=== PATIENT | female | born 1990 | race Caucasian/White ===

== ENCOUNTER 2016-09-14 12:27 | Inpatient (IN) | payer OTHER ==
[~2016-09-14] VITALS: Ht 172.7 cm; Wt 68.6 kg
[~2016-09-14 12:27] MED LIST: ARIP1TAB11 PO; SERT50 PO
[2016-09-14 12:30] VITALS: BP 123/80; PULSE 76; RESP 24; TEMP 97.9; O2SAT 95
[2016-09-14 13:50] LABS: AUTOMATED NEUTROPHIL # 4.5 TH/MM3 (1.8-7.7); BASOPHIL % 0.1 % (0.0-2.0); EOSINOPHIL # 0.1 TH/MM3 (0-0.4); HEMO FLAGS DIFF FINAL; LYMPHOCYTE # 1.8 TH/MM3 (1.0-4.8); MEAN CELL VOLUME 91.7 FL (80.0-100.0); MEAN CORPUSCULAR HEMOGLOBIN 30.2 PG (27.0-34.0); MONO % 12.2 % (0.0-8.0); NEUT % 60.7 % (16.0-70.0); PLATELET COUNT 185 TH/MM3 (150-450); RED BLOOD COUNT 4.69 MIL/MM3 (4.00-5.30); WHITE BLOOD COUNT 7.4 TH/MM3 (4.0-11.0)
[2016-09-14 14:14] LABS: BICARBONATE 27.5 MEQ/L (21.0-32.0); POTASSIUM 3.9 MEQ/L (3.5-5.1)
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
[2016-09-14 17:14] VITALS: BP 134/66; PULSE 80; RESP 18; O2SAT 98
[2016-09-14 17:52] LABS: BACTERIA, URINE MANY /hpf; BLOOD, URINE TRACE (NEG); COMMENT (UR) CULTURE INDICATED; CULTURE IF INDICATED CULTURE INDICATED; GLUCOSE,URINE NEG (NEG); KETONE, URINE 40 mg/dL (NEG); MUCUS URINE FEW /lpf (OCC); NITRITE,URINE NEG (NEG); PH, URINE 6.5 (5.0-8.5); SQUAMOUS EPITHELIAL CELL URINE 286 /hpf (0-5); URINE COLOR YELLOW (YELLW/STRAW)
[2016-09-14 18:23] LABS: AMPHETAMINE, URINE NEG (NEG); BARBITURATES, URINE NEG (NEG); COCAINE, URINE NEG (NEG)
[2016-09-14] MEDS ORDERED: CEPH-460 PO (19:56)
[2016-09-14] MEDS ORDERED: CEPHALEXIN MONOHYDRATE 500 MG CAP PO ONE (20:00)
[2016-09-14 22:05] VITALS: BP 143/91; PULSE 81; RESP 17; O2SAT 98
[2016-09-15 02:29] VITALS: BP 137/96; PULSE 100; RESP 17; O2SAT 99
[2016-09-15 06:07] VITALS: BP 140/75; PULSE 100; RESP 18; O2SAT 98
[2016-09-15] MEDS ORDERED: CEPHALEXIN MONOHYDRATE 500 MG CAP PO ONE (08:45)
[2016-09-15] MEDS ORDERED: ONDANSETRON ODT 4 MG TAB PO ONE (08:45)
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
[2016-09-15] MEDS ORDERED: diphenhydrAMINE HCL 50 MG/ML VIAL IM ONE (09:15)
[2016-09-15] MEDS ORDERED: OLANZapine IM 10 MG VIAL IM ONE ×3 (09:15→10:30)
[2016-09-15] MEDS ORDERED: ALUMINUM/MAGNESIUM/SIMETH 30 ML CUP PO PRN (13:15)
[2016-09-15 13:53] VITALS: BP 130/74; PULSE 105; RESP 19; TEMP 98.2; O2SAT 98
[2016-09-15 14:10] VITALS: BP 130/74; PULSE 105; RESP 19; O2SAT 98
[2016-09-15 15:06] VITALS: BP 136/78; PULSE 100; RESP 18; TEMP 98.3; O2SAT 99
[2016-09-15 18:00] VITALS: BP 136/78; PULSE 100; RESP 18; TEMP 98.3; O2SAT 99
[2016-09-15] MEDS: MAGNESIUM HYDROXIDE SUSP 30 ML CUP PO PRN (21:55)
[2016-09-16] MEDS: ACETAMINOPHEN 325 MG TAB PO PRN ×2 (00:30→13:05)
[2016-09-16 05:33] VITALS: BP 120/64; PULSE 75; RESP 16; TEMP 97.9; O2SAT 97
[2016-09-16 10:09] LABS: ANION GAP 10 MEQ/L (5-15); BICARBONATE 24.4 MEQ/L (21.0-32.0); BLOOD UREA NITROGEN 12 MG/DL (7-18); CHLORIDE 103 MEQ/L (98-107); POTASSIUM 3.8 MEQ/L (3.5-5.1); SODIUM (NA) 137 MEQ/L (136-145)
[2016-09-16 10:10] LABS: GLOMERULAR FILTRATION RATE 82 ML/MIN (>89)
[2016-09-16 10:18] LABS: HDL CHOLESTEROL 46.7 MG/DL (40.0-60.0); LDL CHOLESTEROL 67 MG/DL (0-99)
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
[2016-09-16] MEDS: MAGNESIUM HYDROXIDE SUSP 30 ML CUP PO PRN (13:03)
[2016-09-16] MEDS ORDERED: CEPH-460 PO (13:40)
[2016-09-16] MEDS ORDERED: ZYPR10TA PO (13:40)
[2016-09-16] MEDS ORDERED: CIPR250T52 PO (13:43)
[2016-09-16 16:30] LABS: HEMOGLOBIN A1a 0.9 %; HEMOGLOBIN A1b 1.4 %; HEMOGLOBIN Ao 87.3 %; HEMOGLOBIN LA1C 1.9 %; HEMOGLOBIN P3 3.3 %
== END 2016-09-16 15:45 | disposition home or self-care (01) | DRG 882 ==
LOC: NEPD 12:27 → NEDA 09-15 13:13 → H260 09-15 14:05
PROVIDERS: ADMIT Psychiatry & Neurology Psychiatry; ATTEND Psychiatry & Neurology Psychiatry
DX: F43.20 Adjustment disorder, unspecified (principal); N39.0 Urinary tract infection, site not specified; F60.3 Borderline personality disorder; F12.10 Cannabis abuse, uncomplicated; Z88.8 Allergy status to other drugs, medicaments and biological substances; Z91.040 Latex allergy status
CPT/HCPCS: 80048; 80061; 80307; 81001; 83036; 84703; 85025; 87086; 96372; J1200

== ENCOUNTER 2016-10-26 09:33 | Emergency (ER) | payer OTHER ==
[~2016-10-26] VITALS: Ht 170.2 cm; Wt 65.0 kg
[~2016-10-26 09:33] MED LIST changes: -ARIP1TAB11 PO; +CIPR250T52 PO; -SERT50 PO; +ZYPR10TA PO
[2016-10-26 09:44] VITALS: BP 134/80; PULSE 98; RESP 20; TEMP 97.9; O2SAT 98
[2016-10-26] MEDS ORDERED: WELLTAB39 PO (10:43)
[2016-10-26] MEDS ORDERED: VIST25CA PO (10:43)
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
[2016-10-26] MEDS ORDERED: BUPR150CR PO (12:07)
--- NOTE | 2016-10-26 12:12 | RADRPT ---
EXAM DATE/TIME: 10/26/2016 12:04 [facility] COMPARISON: No previous studies available for comparison. INDICATIONS : Lower back pain. MEDICAL HISTORY : None. SURGICAL HISTORY : None. ENCOUNTER: Initial ACUITY: 1 month PAIN SCORE: 8/10 LOCATION: Lumbar. FINDINGS: Two view examination was performed. There are five non-rib bearing vertebral bodies. The vertebral bodies are in normal alignment without evidence of subluxation or scoliosis. There is disc space narr owing at L5-S1, mild. A few scattered Schmorl nodes are present.. The pedicles are intact. Bony min eralization is normal. No fracture is identified. CONCLUSION: Scattered Schmorl nodes and mild disc space narrowing. Eleazar Najera MD on October 26, 2016 at 12:10 Board Certified Radiologist. This report was verified electronically.
[2016-10-26 12:36] LABS: AUTOMATED NEUTROPHIL # 3.7 TH/MM3 (1.8-7.7); BASOPHIL % 0.2 % (0.0-2.0); EOSINOPHIL # 0.2 TH/MM3 (0-0.4); EOSINOPHIL % 2.4 % (0.0-4.0); HEMATOCRIT 37.3 % (35.0-46.0); HEMO FLAGS DIFF FINAL; LYMPH % 30.7 % (9.0-44.0); LYMPHOCYTE # 2.1 TH/MM3 (1.0-4.8); MEAN CELL VOLUME 90.7 FL (80.0-100.0); MEAN CORPUSCULAR HEMOGLOBIN 30.2 PG (27.0-34.0); MEAN CORPUSCULAR HGB CONC 33.3 % (32.0-36.0); MONO % 13.5 % (0.0-8.0); NEUT % 53.2 % (16.0-70.0); PLATELET COUNT 252 TH/MM3 (150-450); RED BLOOD COUNT 4.11 MIL/MM3 (4.00-5.30); RED CELL DISTRIBUTION WIDTH 13.1 % (11.6-17.2)
[2016-10-26 12:55] LABS: ANION GAP 8 MEQ/L (5-15); AST (GOT) 29 U/L (15-37); BICARBONATE 23.7 MEQ/L (21.0-32.0); BLOOD UREA NITROGEN 11 MG/DL (7-18); CHLORIDE 112 MEQ/L (98-107); GLOMERULAR FILTRATION RATE 82 ML/MIN (>89); POTASSIUM 3.8 MEQ/L (3.5-5.1); SODIUM (NA) 144 MEQ/L (136-145)
[2016-10-26 12:56] LABS: ALCOHOL LESS THAN 3 MG/DL (0-5)
[2016-10-26 12:58] LABS: ALKALINE PHOSPHATASE 50 U/L (45-117); ALT (GPT) 33 U/L (10-53); TOTAL BILIRUBIN ADULT 0.2 MG/DL (0.2-1.0)
[2016-10-26 13:05] LABS: ACETAMINOPHEN LESS THAN 2.0 MCG/ML (10.0-30.0)
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
[2016-10-26 14:28] LABS: BACTERIA, URINE FEW /hpf; BLOOD, URINE MOD (NEG); COMMENT (UR) CULT NOT INDICATED; CULTURE IF INDICATED CULT NOT INDICATED; GLUCOSE,URINE NEG (NEG); KETONE, URINE NEG (NEG); MUCUS URINE FEW /lpf (OCC); NITRITE,URINE NEG (NEG); SQUAMOUS EPITHELIAL CELL URINE 4 /hpf (0-5); URINE COLOR YELLOW (YELLW/STRAW)
== END 2016-10-26 14:27 | disposition home or self-care (01) ==
LOC: NEPK 09:33 → NEPD 14:27
DX: M54.5 Low back pain (principal)
CPT/HCPCS: 72100; 80053; 80307; 81001; 84703; 85025; 99284

== ENCOUNTER 2016-10-27 18:58 | Emergency (ER) | payer OTHER ==
[~2016-10-27 18:58] MED LIST changes: +BUPR150CR PO; -CIPR250T52 PO; +VIST25CA PO; -ZYPR10TA PO
[2016-10-27 19:49] VITALS: BP 134/96; PULSE 89; RESP 17; O2SAT 95
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
[2016-10-27 21:25] LABS: AUTOMATED NEUTROPHIL # 6.5 TH/MM3 (1.8-7.7); BASOPHIL % 0.1 % (0.0-2.0); EOSINOPHIL # 0.2 TH/MM3 (0-0.4); EOSINOPHIL % 2.3 % (0.0-4.0); HEMATOCRIT 37.9 % (35.0-46.0); HEMO FLAGS DIFF FINAL; LYMPH % 26.3 % (9.0-44.0); LYMPHOCYTE # 2.7 TH/MM3 (1.0-4.8); MEAN CORPUSCULAR HEMOGLOBIN 29.8 PG (27.0-34.0); MEAN CORPUSCULAR HGB CONC 32.8 % (32.0-36.0); MONO % 8.7 % (0.0-8.0); NEUT % 62.6 % (16.0-70.0); PLATELET COUNT 239 TH/MM3 (150-450); RED BLOOD COUNT 4.17 MIL/MM3 (4.00-5.30); RED CELL DISTRIBUTION WIDTH 12.8 % (11.6-17.2); WHITE BLOOD COUNT 10.4 TH/MM3 (4.0-11.0)
[2016-10-27 21:46] LABS: ANION GAP 7 MEQ/L (5-15); AST (GOT) 19 U/L (15-37); BICARBONATE 25.3 MEQ/L (21.0-32.0); BLOOD UREA NITROGEN 11 MG/DL (7-18); CHLORIDE 108 MEQ/L (98-107); GLOMERULAR FILTRATION RATE 65 ML/MIN (>89); POTASSIUM 3.2 MEQ/L (3.5-5.1); SODIUM (NA) 140 MEQ/L (136-145)
[2016-10-27 21:47] LABS: ALT (GPT) 29 U/L (10-53)
[2016-10-27 21:49] LABS: ACETAMINOPHEN LESS THAN 2.0 MCG/ML (10.0-30.0); ALKALINE PHOSPHATASE 45 U/L (45-117); TOTAL BILIRUBIN ADULT 0.3 MG/DL (0.2-1.0)
[2016-10-27 21:59] LABS: ALCOHOL LESS THAN 3 MG/DL (0-5)
[2016-10-27 22:19] VITALS: BP 157/67; PULSE 109; RESP 17; O2SAT 99
[2016-10-27] MEDS ORDERED: POTASSIUM CHLORIDE 20 MEQ CONTROLLED RELEASE TAB PO ONE (22:30)
[2016-10-28 02:00] VITALS: BP 136/77; PULSE 105; RESP 16; O2SAT 100
[2016-10-28 06:39] VITALS: BP 127/72; PULSE 85; RESP 18; O2SAT 99
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
[2016-10-28 12:18] VITALS: BP 147/60; PULSE 83; RESP 18; TEMP 98.6; O2SAT 100
--- NOTE | 2016-10-28 12:57 | PD ---
Physical Exam Date Seen by Provider: Oct 28, 2016 Time Seen by Provider: 12:54 Narrative Patient was seen by psychiatric nurse practitioner eLyla Melendez act was lifted. Please refer to previous provider's dictation for full H&P details. Patient has outpatient psychiatry appointment on November 12. According to the nurse practitioner patient has no suicide or homicidal ideation. Discharge was recommended. Data Data Last Documented VS Vital Signs Date Time Temp Pulse Resp B/P (MAP) Pulse Ox O2 Delivery O2 Flow Rate FiO2 10/28/16 12:18 98.6 83 18 147/60 (89) 100 10/28/16 06:39 Room Air Orders Orders Complete Blood Count With Diff (10/27/16 19:35) Comprehensive Metabolic Panel (10/27/16 19:35) Ed Urine Pregnancytest Poc (10/27/16 19:35) Psych Screen (10/27/16 19:35) Drug Screen, Random Urine (10/27/16 19:35) Alcohol (Ethanol) (10/27/16 19:35) Salicylates (Aspirin) (10/27/16 19:35) Tylenol (Acetaminophen) (10/27/16 19:35) Potassium Chloride (Kcl) (10/27/16 22:30) Hydroxyzine Pamoate (Vistaril) (10/27/16 22:30) Diet Regular Basic (10/28/16 Breakfast) Diet Regular Basic (10/28/16 Lunch) Bupropion Sr (Wellbutrin Sr) (10/28/16 12:15) Labs Laboratory Tests Test 10/27/16 20:20 10/27/16 21:00 Urine Opiates Screen NEG Urine Barbiturates Screen NEG Urine Amphetamines Screen NEG Urine Benzodiazepines Screen NEG Urine Cocaine Screen NEG Urine Cannabinoids Screen POS White Blood Count 10.4 TH/MM3 Red Blood Count 4.17 MIL/MM3 Hemoglobin 12.4 GM/DL Hematocrit 37.9 % Mean Corpuscular Volume 91.0 FL Mean Corpuscular Hemoglobin 29.8 PG Mean Corpuscular Hemoglobin Concent 32.8 % Red Cell Distribution Width 12.8 % Platelet Count 239 TH/MM3 Mean Platelet Volume 8.5 FL Neutrophils (%) (Auto) 62.6 % Lymphocytes (%) (Auto) 26.3 % Monocytes (%) (Auto) 8.7 % Eosinophils (%) (Auto) 2.3 % Basophils (%) (Auto) 0.1 % Neutrophils # (Auto) 6.5 TH/MM3 Lymphocytes # (Auto) 2.7 TH/MM3 Monocytes # (Auto) 0.9 TH/MM3 Eosinophils # (Auto) 0.2 TH/MM3 Basophils # (Auto) 0.0 TH/MM3 CBC Comment DIFF FINAL Differential Comment Blood Urea Nitrogen 11 MG/DL Creatinine 1.03 MG/DL Random Glucose 84 MG/DL Total Protein 6.9 GM/DL Albumin 3.3 GM/DL Calcium Level 8.2 MG/DL Alkaline Phosphatase 45 U/L Aspartate Amino Transf (AST/SGOT) 19 U/L Alanine Aminotransferase (ALT/SGPT) 29 U/L Total Bilirubin 0.3 MG/DL Sodium Level 140 MEQ/L Potassium Level 3.2 MEQ/L Chloride Level 108 MEQ/L Carbon Dioxide Level 25.3 MEQ/L Anion Gap 7 MEQ/L Estimat Glomerular Filtration Rate 65 ML/MIN Salicylates Level LESS THAN 1.7 MG/DL Acetaminophen Level LESS THAN 2.0 MCG/ML Ethyl Alcohol Level LESS THAN 3 MG/DL [facility] Medical Record Reviewed: Yes Supervised Visit with GARRY: No Differential Diagnosis Bipolar disorder Narrative Course I have seen the patient prior to discharge. She does not voice any concerns of suicide or homicide. Patient tells me she is ready to go home. She does have an outpatient follow-up with her psychiatrist on November 12. Diagnosis Primary Impression: Medical clearance for psychiatric admission Additional Impression: Bipolar 1 disorder, mixed Patient Instructions: General Instructions Additional Instruction: Follow-up with your psychiatrist. Return to the emergency department for any worsening of your condition Disposition: 01 DISCHARGE HOME Condition: Stable Yaima Goddard Oct 28, 2016 12:56
[2016-10-28] MEDS ORDERED: buPROPion HCL 150 MG SUSTAINED RELEASE TAB PO SCH (13:30)
== END 2016-10-28 13:31 | disposition home or self-care (01) ==
LOC: NEPJ 18:58
DX: Z02.89 Encounter for other administrative examinations (principal); F31.9 Bipolar disorder, unspecified; J45.909 Unspecified asthma, uncomplicated
CPT/HCPCS: 80053; 80307; 84703; 85025; 99284

== ENCOUNTER 2016-11-15 23:24 | Emergency (ER) | payer OTHER ==
[~2016-11-15] VITALS: Ht 165.1 cm; Wt 57.0 kg
[2016-11-15 23:29] VITALS: BP 119/76; PULSE 120; RESP 16; TEMP 97.5; O2SAT 100
[2016-11-16] MEDS ORDERED: BUSP10TA PO ×2 (00:26→01:07)
[2016-11-16] MEDS ORDERED: DIAZ2 PO (00:27)
[2016-11-16] MEDS ORDERED: HYDR50TA94 PO (01:07)
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
== END 2016-11-16 01:29 | disposition home or self-care (01) ==
LOC: NEPD 23:24
DX: Z76.0 Encounter for issue of repeat prescription (principal); F31.9 Bipolar disorder, unspecified; F41.9 Anxiety disorder, unspecified; J45.909 Unspecified asthma, uncomplicated
CPT/HCPCS: 99281

== ENCOUNTER 2016-11-19 09:48 | Emergency (ER) | payer OTHER ==
[~2016-11-19] VITALS: Ht 167.6 cm; Wt 60.0 kg
[~2016-11-19 09:48] MED LIST changes: -BUPR150CR PO; +BUSP10TA PO; +DIAZ2 PO; +HYDR50TA94 PO
[2016-11-19 10:09] VITALS: BP 119/69; PULSE 113; RESP 18; O2SAT 100
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
[2016-11-19] MEDS ORDERED: KETOROLAC TROMETHAMINE 30 MG/ML (IVP) VIAL IVP ONE (10:30)
[2016-11-19 10:32] LABS: AUTOMATED NEUTROPHIL # 16.5 TH/MM3 (1.8-7.7); BASOPHIL % 0.1 % (0.0-2.0); EOSINOPHIL % 0.2 % (0.0-4.0); HEMATOCRIT 40.3 % (35.0-46.0); LYMPH % 7.5 % (9.0-44.0); LYMPHOCYTE # 1.5 TH/MM3 (1.0-4.8); MEAN CELL VOLUME 91.6 FL (80.0-100.0); MEAN CORPUSCULAR HEMOGLOBIN 30.3 PG (27.0-34.0); MEAN CORPUSCULAR HGB CONC 33.1 % (32.0-36.0); MONO % 11.1 % (0.0-8.0); NEUT % 81.1 % (16.0-70.0); PLATELET COUNT 214 TH/MM3 (150-450); RED CELL DISTRIBUTION WIDTH 13.5 % (11.6-17.2); WHITE BLOOD COUNT 20.4 TH/MM3 (4.0-11.0)
[2016-11-19 10:35] LABS: HEMO FLAGS AUTO DIFF
[2016-11-19 10:46] LABS: ANION GAP 5 MEQ/L (5-15); BICARBONATE 27.7 MEQ/L (21.0-32.0); BLOOD UREA NITROGEN 11 MG/DL (7-18); CHLORIDE 104 MEQ/L (98-107); GLOMERULAR FILTRATION RATE 57 ML/MIN (>89); POTASSIUM 3.4 MEQ/L (3.5-5.1); SODIUM (NA) 137 MEQ/L (136-145)
[2016-11-19 11:00] LABS: ALCOHOL LESS THAN 3 MG/DL (0-5)
[2016-11-19 11:01] LABS: BACTERIA, URINE MOD /hpf; COMMENT (UR) CULTURE INDICATED; CULTURE IF INDICATED CULTURE INDICATED; MUCUS URINE MOD /lpf (OCC); SQUAMOUS EPITHELIAL CELL URINE 31 /hpf (0-5)
[2016-11-19 11:03] LABS: URINE COLOR DARK-BROWN (YELLW/STRAW)
[2016-11-19 11:05] LABS: BLOOD, URINE LARGE (NEG); GLUCOSE,URINE 70 mg/dL (NEG); KETONE, URINE NEG (NEG); NITRITE,URINE POS (NEG)
[2016-11-19 11:12] LABS: SCAN/DIFF AUTO DIFF CONFIRMED
[2016-11-19] MEDS ORDERED: CIPR-9 PO (13:21)
[2016-11-19] MEDS ORDERED: CIPROFLOXACIN 500 MG TAB PO ONE (13:30)
[2016-11-19 15:00] VITALS: BP 127/68; PULSE 110; RESP 20; TEMP 98.1; O2SAT 100
[2016-11-19 18:00] VITALS: BP 109/58; PULSE 110; RESP 18; O2SAT 97
[2016-11-19 19:16] VITALS: TEMP 98.6
[2016-11-20 02:22] VITALS: BP 121/59; PULSE 108; RESP 18
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
== END 2016-11-20 12:52 | disposition home or self-care (01) ==
LOC: NEPD 09:48 → NEPJ 11-20 12:52
DX: F31.9 Bipolar disorder, unspecified (principal); N39.0 Urinary tract infection, site not specified; B96.20 Unspecified Escherichia coli [E. coli] as the cause of diseases classified elsewhere; D72.829 Elevated white blood cell count, unspecified; F90.9 Attention-deficit hyperactivity disorder, unspecified type; F43.10 Post-traumatic stress disorder, unspecified; J45.909 Unspecified asthma, uncomplicated; F17.200 Nicotine dependence, unspecified, uncomplicated; Z79.899 Other long term (current) drug therapy
CPT/HCPCS: 80048; 80307; 81001; 84703; 85025; 87077; 87086; 87186; 96374; 99284; J1885

== ENCOUNTER 2016-11-23 21:24 | Emergency (ER) | payer SELFPAY ==
[~2016-11-23] VITALS: Ht 167.6 cm; Wt 60.0 kg
[~2016-11-23 21:24] MED LIST changes: +CIPR-9 PO; -VIST25CA PO
[2016-11-23 21:29] VITALS: BP 118/75; PULSE 85; RESP 16; TEMP 97.6; O2SAT 97
[2016-11-23] MEDS ORDERED: ADDE20XR PO (23:02)
[2016-11-23] MEDS ORDERED: MARI10CA PO (23:02)
[2016-11-23] MEDS ORDERED: VIST25CA PO (23:02)
[2016-11-23] MEDS ORDERED: BUPR150CR PO (23:02)
[2016-11-23] MEDS ORDERED: NORE1TAB43 PO (23:24)
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
--- NOTE | 2016-11-23 23:57 | RADRPT ---
EXAM DATE/TIME: 11/23/2016 23:36 [facility] COMPARISON: CHEST SINGLE AP, June 17, 2015, 22:33. INDICATIONS : Syncopal episode. MEDICAL HISTORY : None. SURGICAL HISTORY : None. ENCOUNTER: Initial ACUITY: 1 day PAIN SCORE: 0/10 LOCATION: Bilateral chest FINDINGS: A single view of the chest demonstrates the lungs to be symmetrically aerated without evidence of mas s, infiltrate or effusion. The cardiomediastinal contours are unremarkable. Osseous structures are intact. CONCLUSION: Normal examination. Valentin Rodrigues Jr., MD on November 23, 2016 at 23:55 Board Certified Radiologist. This report was verified electronically.
[2016-11-24 00:16] LABS: AUTOMATED NEUTROPHIL # 6.4 TH/MM3 (1.8-7.7); BASOPHIL % 0.2 % (0.0-2.0); EOSINOPHIL # 0.3 TH/MM3 (0-0.4); EOSINOPHIL % 2.5 % (0.0-4.0); HEMO FLAGS DIFF FINAL; LYMPH % 27.5 % (9.0-44.0); LYMPHOCYTE # 2.8 TH/MM3 (1.0-4.8); MEAN CELL VOLUME 90.7 FL (80.0-100.0); MEAN CORPUSCULAR HEMOGLOBIN 29.7 PG (27.0-34.0); MEAN CORPUSCULAR HGB CONC 32.8 % (32.0-36.0); MONO % 7.3 % (0.0-8.0); NEUT % 62.5 % (16.0-70.0); PLATELET COUNT 237 TH/MM3 (150-450); RED BLOOD COUNT 3.42 MIL/MM3 (4.00-5.30); RED CELL DISTRIBUTION WIDTH 13.4 % (11.6-17.2); WHITE BLOOD COUNT 10.3 TH/MM3 (4.0-11.0)
[2016-11-24 00:51] LABS: ANION GAP 6 MEQ/L (5-15); BICARBONATE 23.7 MEQ/L (21.0-32.0); BLOOD UREA NITROGEN 10 MG/DL (7-18); CHLORIDE 110 MEQ/L (98-107); GLOMERULAR FILTRATION RATE 75 ML/MIN (>89); MAGNESIUM 2.4 MG/DL (1.5-2.5); POTASSIUM 3.4 MEQ/L (3.5-5.1); SODIUM (NA) 140 MEQ/L (136-145)
--- NOTE | 2016-11-24 00:53 | RADRPT ---
EXAM DATE/TIME: 11/24/2016 00:42 [place] COMPARISON: No previous studies available for comparison. INDICATIONS : Syncope. RADIATION DOSE: 32.74 CTDIvol (mGy) MEDICAL HISTORY : None SURGICAL HISTORY : None. ENCOUNTER: Initial ACUITY: 1 day PAIN SCALE: 0/10 LOCATION: cranial TECHNIQUE: Multiple contiguous axial images were obtained of the head. Using automated exposure control and adj ustment of the mA and/or kV according to patient size, radiation dose was kept as low as reasonably a chievable to obtain optimal diagnostic quality images. DICOM format image data is available electro nically for review and comparison. FINDINGS: CEREBRUM: The ventricles are normal for age. No evidence of midline shift, mass lesion, hemorrhage or acute in farction. No extra-axial fluid collections are seen. POSTERIOR FOSSA: The cerebellum and brainstem are intact. The 4th ventricle is midline. The cerebellopontine angle i s unremarkable. EXTRACRANIAL: The visualized portion of the orbits is intact. SKULL: The calvaria is intact. No evidence of skull fracture. CONCLUSION: Normal examination. Valentin Rodrigues Jr., MD on November 24, 2016 at 0:51 Board Certified Radiologist. This report was verified electronically.
[2016-11-24 01:10] LABS: ALCOHOL LESS THAN 3 MG/DL (0-5)
[2016-11-24] MEDS ORDERED: GABA300C5 PO (01:12)
[2016-11-24] MEDS ORDERED: ARIP1TAB12 PO (01:12)
[2016-11-24] MEDS ORDERED: SERT-132 PO (01:12)
[2016-11-24] MEDS ORDERED: POTASSIUM CHLORIDE 20 MEQ CONTROLLED RELEASE TAB PO ONE (01:45)
--- NOTE | 2016-11-24 17:15 | EKG ---
Date Performed: 11/23/2016 Time Performed: 23:50:14 PTAGE: 26 years EKG: Sinus rhythm NORMAL ECG PREVIOUS TRACING : 06/05/2015 20.47 Compared to prior tracing no significant change DOCTOR: Nabil Glover Interpretating Date/Time 11/24/2016 17:14:17
== END 2016-11-24 01:54 | disposition home or self-care (01) ==
LOC: NEPC 21:24 → NEPF 11-24 01:54
DX: T74.21XA Adult sexual abuse, confirmed, initial encounter (principal); J45.909 Unspecified asthma, uncomplicated; S50.12XA Contusion of left forearm, initial encounter; S80.12XA Contusion of left lower leg, initial encounter; S80.11XA Contusion of right lower leg, initial encounter; R51 Headache; Z72.0 Tobacco use
CPT/HCPCS: 70450; 71010; 80048; 80307; 83735; 84484; 84703; 85025; 93005

== ENCOUNTER 2016-12-16 10:20 | Emergency (ER) | payer SELFPAY ==
[~2016-12-16] VITALS: Ht 172.7 cm; Wt 67.0 kg
[~2016-12-16 10:20] MED LIST changes: +ADDE20XR PO; +ARIP1TAB12 PO; +BUPR150CR PO; -CIPR-9 PO; +GABA300C5 PO; +MARI10CA PO; +NORE1TAB43 PO; +SERT-132 PO; +VIST25CA PO
[2016-12-16 10:23] VITALS: BP 106/57; PULSE 95; RESP 16; TEMP 98.4; O2SAT 98
--- NOTE | 2016-12-16 10:46 | PD ---
HPI Chief Complaint: Medication Refill Request Time Seen by Provider: 10:45 Travel History International Travel<30 days: No Contact w/Intl Traveler<30days: No Traveled to known affect area: No History of Present Illness HPI 26-year-old female presents to emergency department requesting refill on Vistaril for her anxiety and PTSD. States she hasn't taken her medication in 3 days. This patient has been seen multiple times here at [facility] and has a psych history of bipolar disorder. Denies suicidal or homicidal ideations. Denies visual or auditory hallucinations. Says she has the medications available to her but her mom is holding them and will not give them to her. Says her medications urine [place] and she has no way to drive up there to try to obtain them from her mother. She also states that she does not want to be seen in the [facility]. She is requesting transport to [facility]. Describing symptoms of feeling anxious. She has no emergent medical complaints at this time. Denies chest pain, shortness of breath, abdominal pain, vomiting, fevers, change in urine or stool. Allergies as listed on the chart. No other modifying factors or associated signs and symptoms. History Social History Alcohol Use: No (CLAIMS TO BE 104 DAYS SOBER) Tobacco Use: Yes (THC and 0.5 ppd) Allergies-Medications (Allergen,Severity, Reaction): Coded Allergies: risperidone (Verified Allergy, Severe, Lethargy, 10/26/16) aripiprazole (Verified Allergy, Unknown, 11/19/16) bupropion (Verified Allergy, Unknown, 11/19/16) latex (Verified Allergy, Unknown, Rash, 10/26/16) sertraline (Verified Allergy, Unknown, 11/19/16) Uncoded Allergies: NARCOTICS (Allergy, Severe, HISTORY ABUSE, 12/16/16) PSYCH MEDS (Allergy, Severe, Anaphylaxis, 10/26/16) Reported Meds & Prescriptions Reported Meds & Active Scripts Active Hydroxyzine HCl 50 Mg Tab 25 Mg PO HS Reported Gabapentin 300 Mg Cap 300 Mg PO HS Sertraline (Sertraline HCl) 50 Mg Tab 50 Mg PO DAILY Aripiprazole 10 Mg Tab 10 Mg PO DAILY Microgestin 1/20 (Norethindrone-Ethinyl Estradiol) 1-20 Mg-Mcg Tab 1 Tab PO DAILY Marinol (Dronabinol) 10 Mg Cap 10 Mg PO DAILY Adderall Xr 24 HR (Amphetamine/Dextroamphetamine) 20 Mg Cap 20 Mg PO DAILY Once daily in the morning. Wellbutrin SR 12 HR (Bupropion HCl) 150 Mg Tab 150 Mg PO Q12HR Vistaril (Hydroxyzine Pamoate) 25 Mg Cap 25 Mg PO HS Valium (Diazepam) 2 Mg Tab 2 Mg PO BID PRN Buspirone (Buspirone HCl) 10 Mg Tab 10 Mg PO TID Review of Systems Except as stated in HPI: all other systems reviewed are Neg Physical Exam Narrative GENERAL: Well-nourished, well-developed female patient, in no acute distress SKIN: Warm and dry. HEAD: Atraumatic. Normocephalic. EYES: Pupils equal and round. ENT: Mucosa pink and moist. NECK: Supple. Trachea midline. CARDIOVASCULAR: Regular rate and rhythm. No murmur appreciated. RESPIRATORY: No accessory muscle use. Clear to auscultation. Breath sounds equal bilaterally. GASTROINTESTINAL: Abdomen soft, non-tender, nondistended. Hepatic and splenic margins not palpable. Bowel sounds are active 4 quadrants. MUSCULOSKELETAL: No obvious deformities. No clubbing. No cyanosis. No edema. BACK: No CVA tenderness. NEUROLOGICAL: Awake and alert. Oriented 3. No obvious cranial nerve deficits. Motor grossly within normal limits. Normal speech. Moves all extremities. 5/5 strength to all extremities. PSYCHIATRIC: No delusional thought processes. No hallucinations. Data Data Last Documented VS Vital Signs Date Time Temp Pulse Resp B/P (MAP) Pulse Ox O2 Delivery O2 Flow Rate FiO2 12/16/16 10:23 98.4 95 16 106/57 (73) 98 MDM Medical Screen Exam Complete: Yes Emergency Medical Condition: No Differential Diagnosis Medication refill, anxiety, bipolar disorder, medical clearance Narrative Course 26-year-old female requesting medication refill on Vistaril for her anxiety. She has no emergent medical complaints at this time. Patient does have prescriptions at home but apparently her mother is holding them from her. She denies suicidal or homicidal ideations. She is requesting to go to [facility]. She does not want to be screened by psych here at [facility]. I did offer to give the patient is Vistaril while she was here and give her a prescription for the next couple days and she declined at this time. Says she would like to go to [facility] and that would be great if we could get her there. She is requesting transportation to [facility]. 1045: I Contacted ED case management and they said we can provide the patient with bus passes or our transportation to [facility]. I discussed the options with the patient and she would like our transportation to take her to [facility]. 1047: The patient will be transported to [facility] for further treatment and evaluation. 1115: [facility] transportation arrived and the patient is being transported to [facility] for further treatment and evaluation. Vital signs are stable and the patient is stable for outpatient follow-up and treatment. The patient has no urgent or emergent medical complaints. There is no emergent or urgent medical need at this time. I instructed the patient to follow up with their primary care provider. A medical screening exam was performed: At the time of evaluation the presenting medical condition was determined not to be of an emergent nature. The patient was given the option of receiving additional care, but declined. Patient was given options for additional community resources from which to obtain care. The Patient Has Been advised to seek medical attention for their presenting complaint. The patient has been advised to return to the ER at any time if an emergent condition develops. Primary Impression: Encounter for medical screening examination Condition: Stable Cindy Lane [employer] Dec 16, 2016 10:46
[2016-12-17] MEDS ORDERED: TRAZ100T6 PO (05:38)
[2016-12-17] MEDS ORDERED: CLON0.1T PO (05:38)
[2016-12-17] MEDS ORDERED: FLUO-1 PO (05:38)
[2016-12-17] MEDS ORDERED: VIST25CA PO (05:42)
== END 2016-12-16 12:13 | disposition left against medical advice (07) ==
LOC: NEPK 10:20
DX: F41.9 Anxiety disorder, unspecified (principal); F43.10 Post-traumatic stress disorder, unspecified; F17.200 Nicotine dependence, unspecified, uncomplicated; Z79.899 Other long term (current) drug therapy
CPT/HCPCS: 99281

== ENCOUNTER 2016-12-17 05:13 | Emergency (ER) | payer OTHER ==
[~2016-12-17] VITALS: Ht 172.7 cm; Wt 60.0 kg
[2016-12-17 05:17] VITALS: BP 129/61; PULSE 92; RESP 18; TEMP 98.3; O2SAT 97
[2016-12-17] MEDS ORDERED: TRAZ100T6 PO (05:38)
[2016-12-17] MEDS ORDERED: FLUO-1 PO (05:38)
[2016-12-17] MEDS ORDERED: CLON0.1T PO (05:38)
[2016-12-17] MEDS ORDERED: VIST25CA PO (05:42)
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
[2016-12-17] MEDS ORDERED: hydrOXYzine PAMOATE 25 MG CAP PO ONE (05:45)
== END 2016-12-17 05:56 | disposition home or self-care (01) ==
LOC: NEPE 05:13
DX: F31.9 Bipolar disorder, unspecified (principal); F41.9 Anxiety disorder, unspecified; F17.200 Nicotine dependence, unspecified, uncomplicated; Z79.899 Other long term (current) drug therapy
CPT/HCPCS: 99283; Q0177

== ENCOUNTER 2016-12-17 06:27 | Emergency (ER) | payer SELFPAY ==
[~2016-12-17] VITALS: Ht 167.6 cm; Wt 60.0 kg
[~2016-12-17 06:27] MED LIST changes: +CLON0.1T PO; +FLUO-1 PO; +TRAZ100T6 PO
[2016-12-17 06:30] VITALS: BP 113/81; PULSE 115; RESP 18; TEMP 98.6; O2SAT 96
== END 2016-12-17 06:35 | disposition left against medical advice (07) ==
LOC: NEPC 06:27
DX: Z53.9 Procedure and treatment not carried out, unspecified reason (principal)
CPT/HCPCS: 99281

== ENCOUNTER 2016-12-27 16:53 | Emergency (ER) | payer OTHER ==
[~2016-12-27] VITALS: Ht 172.7 cm; Wt 75.0 kg
[~2016-12-27 16:53] MED LIST changes: -ADDE20XR PO; -ARIP1TAB12 PO; -BUSP10TA PO; -SERT-132 PO
[2016-12-27 17:05] VITALS: BP 135/68; PULSE 74; RESP 16; TEMP 98.2; O2SAT 99
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
[2016-12-27 18:13] LABS: AUTOMATED NEUTROPHIL # 6.8 TH/MM3 (1.8-7.7); BASOPHIL % 0.1 % (0.0-2.0); EOSINOPHIL # 0.2 TH/MM3 (0-0.4); EOSINOPHIL % 1.6 % (0.0-4.0); HEMATOCRIT 34.6 % (35.0-46.0); HEMO FLAGS DIFF FINAL; LYMPH % 20.1 % (9.0-44.0); LYMPHOCYTE # 1.9 TH/MM3 (1.0-4.8); MEAN CELL VOLUME 92.2 FL (80.0-100.0); MEAN CORPUSCULAR HGB CONC 33.6 % (32.0-36.0); MONO % 6.8 % (0.0-8.0); NEUT % 71.4 % (16.0-70.0); PLATELET COUNT 199 TH/MM3 (150-450); RED BLOOD COUNT 3.75 MIL/MM3 (4.00-5.30); RED CELL DISTRIBUTION WIDTH 13.4 % (11.6-17.2); WHITE BLOOD COUNT 9.5 TH/MM3 (4.0-11.0)
[2016-12-27] MEDS ORDERED: IBUPROFEN 600 MG TAB PO ONE (18:15)
[2016-12-27 18:39] LABS: ACETAMINOPHEN LESS THAN 2.0 MCG/ML (10.0-30.0); ALT (GPT) 34 U/L (10-53); ANION GAP 5 MEQ/L (5-15); AST (GOT) 20 U/L (15-37); BICARBONATE 23.6 MEQ/L (21.0-32.0); BLOOD UREA NITROGEN 15 MG/DL (7-18); CHLORIDE 111 MEQ/L (98-107); GLOMERULAR FILTRATION RATE 86 ML/MIN (>89); SODIUM (NA) 140 MEQ/L (136-145)
[2016-12-27 18:41] LABS: ALKALINE PHOSPHATASE 44 U/L (45-117); TOTAL BILIRUBIN ADULT 0.1 MG/DL (0.2-1.0)
[2016-12-27 18:44] LABS: ALCOHOL LESS THAN 3 MG/DL (0-5)
[2016-12-27] MEDS ORDERED: HALOPERIDOL LACTATE 5 MG/ML AMP IM ONE (20:30)
[2016-12-27 22:18] VITALS: RESP 18
[2016-12-28] MEDS ORDERED: IBUPROFEN 600 MG TAB PO ONE (06:00)
[2016-12-28 06:24] VITALS: BP 114/63; PULSE 74; RESP 17; O2SAT 99
[2016-12-28 11:34] VITALS: BP 127/98; PULSE 77; RESP 18; O2SAT 98
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
--- NOTE | 2016-12-28 12:50 | PD ---
Physical Exam Date Seen by Provider: Dec 28, 2016 Time Seen by Provider: 12:49 Narrative 26-year-old female patient previously medically cleared for psychiatric evaluation, was seen and evaluated by the psychiatric staff and felt to be medically and psychiatrically stable for discharge. Please see their psychiatric note for discharge plan. Data Data Last Documented VS Vital Signs Date Time Temp Pulse Resp B/P (MAP) Pulse Ox O2 Delivery O2 Flow Rate FiO2 12/28/16 11:34 77 18 127/98 (108) 98 Room Air 12/27/16 17:05 98.2 Orders Orders Complete Blood Count With Diff (12/27/16 17:09) Comprehensive Metabolic Panel (12/27/16 17:09) Psych Screen (12/27/16 17:09) Drug Screen, Random Urine (12/27/16 17:09) Alcohol (Ethanol) (12/27/16 17:09) Salicylates (Aspirin) (12/27/16 17:09) Tylenol (Acetaminophen) (12/27/16 17:09) Ed Urine Pregnancytest Poc (12/27/16 17:26) Ibuprofen (Motrin) (12/27/16 18:15) Diet As Tolerated (12/27/16 18:03) Haloperidol Inj (Haldol Inj) (12/27/16 20:30) Diet Regular Basic (12/28/16 Breakfast) Ibuprofen (Motrin) (12/28/16 06:00) Diet Regular Basic (12/28/16 Lunch) Labs Laboratory Tests Test 12/27/16 17:42 White Blood Count 9.5 TH/MM3 Red Blood Count 3.75 MIL/MM3 Hemoglobin 11.6 GM/DL Hematocrit 34.6 % Mean Corpuscular Volume 92.2 FL Mean Corpuscular Hemoglobin 31.0 PG Mean Corpuscular Hemoglobin Concent 33.6 % Red Cell Distribution Width 13.4 % Platelet Count 199 TH/MM3 Mean Platelet Volume 9.1 FL Neutrophils (%) (Auto) 71.4 % Lymphocytes (%) (Auto) 20.1 % Monocytes (%) (Auto) 6.8 % Eosinophils (%) (Auto) 1.6 % Basophils (%) (Auto) 0.1 % Neutrophils # (Auto) 6.8 TH/MM3 Lymphocytes # (Auto) 1.9 TH/MM3 Monocytes # (Auto) 0.6 TH/MM3 Eosinophils # (Auto) 0.2 TH/MM3 Basophils # (Auto) 0.0 TH/MM3 CBC Comment DIFF FINAL Differential Comment Blood Urea Nitrogen 15 MG/DL Creatinine 0.80 MG/DL Random Glucose 88 MG/DL Total Protein 6.8 GM/DL Albumin 3.2 GM/DL Calcium Level 8.0 MG/DL Alkaline Phosphatase 44 U/L Aspartate Amino Transf (AST/SGOT) 20 U/L Alanine Aminotransferase (ALT/SGPT) 34 U/L Total Bilirubin 0.1 MG/DL Sodium Level 140 MEQ/L Potassium Level 4.0 MEQ/L Chloride Level 111 MEQ/L Carbon Dioxide Level 23.6 MEQ/L Anion Gap 5 MEQ/L Estimat Glomerular Filtration Rate 86 ML/MIN Salicylates Level 2.6 MG/DL Urine Opiates Screen NEG Acetaminophen Level LESS THAN 2.0 MCG/ML Urine Barbiturates Screen NEG Urine Amphetamines Screen NEG Urine Benzodiazepines Screen NEG Urine Cocaine Screen NEG Urine Cannabinoids Screen POS Ethyl Alcohol Level LESS THAN 3 MG/DL MDM Medical Record Reviewed: Yes Supervised Visit with GARRY: Yes Narrative Course 26-year-old female patient previously medically cleared for psychiatric evaluation, was seen and evaluated by the psychiatric staff and felt to be medically and psychiatrically stable for discharge. Please see their psychiatric note for discharge plan. Diagnosis Primary Impression: Adjustment disorder Qualified Codes: F43.22 - Adjustment disorder with anxiety Ruled Out: Suicidal ideations, Depression, Homicidal ideation Patient Instructions: General Instructions Disposition: 01 DISCHARGE HOME Condition: Stable Bobby Queen Dec 28, 2016 12:50
== END 2016-12-28 13:16 | disposition home or self-care (01) ==
LOC: NEPD 16:53 → NEPJ 12-28 13:16
DX: F43.22 Adjustment disorder with anxiety (principal); R45.850 Homicidal ideations; R45.851 Suicidal ideations; F90.9 Attention-deficit hyperactivity disorder, unspecified type; F31.9 Bipolar disorder, unspecified; F43.10 Post-traumatic stress disorder, unspecified; J45.909 Unspecified asthma, uncomplicated; Z87.891 Personal history of nicotine dependence
CPT/HCPCS: 80053; 80307; 84703; 85025; 96372; 99284; J1630